=== PATIENT | male | born 1955 | race Caucasian/White ===

== ENCOUNTER 2019-06-20 20:23 | Emergency (ER) | payer OTHER, MEDICARE ==
[~2019-06-20] VITALS: Ht 177.8 cm; Wt 108.9 kg
--- NOTE | 2019-06-20 20:29 | NUR ---
Patient ambulating with steady gait. A&Ox4. c/o left sided facial drooping / paralysis x2 days. Uneven smile noted on left side. Patient able to feel sensation to face bilaterally. even BLE / BUE strength. Speech is clear and able to make needs known / follow commands. Breathing even and unlabored. No cough or SOB noted. Denies any / GI distress.
--- NOTE | 2019-06-20 20:30 | NUR ---
Dr. Oneill at bedside for MSE
[2019-06-20] MEDS ORDERED: CLONIDINE HCL 0.1 MG TABLET ONE (20:52)
[2019-06-20] MEDS ORDERED: predniSONE 20 MG TABLET ONE (20:53)
[2019-06-20] MEDS ORDERED: PANTOPRAZOLE SODIUM 40 MG TABLET.DR PO ONE ×2 (20:53→21:00)
[2019-06-20] MEDS ORDERED: VALACYCLOVIR HCL 500 MG TABLET ONE (20:53)
[2019-06-20] MEDS ORDERED: predniSONE 20 MG TABLET PO ONE (21:00)
[2019-06-20] MEDS ORDERED: CLONIDINE HCL 0.1 MG TABLET PO ONE (21:00)
[2019-06-20] MEDS ORDERED: VALACYCLOVIR HCL 500 MG TABLET PO ONE (21:00)
[2019-06-20] MEDS ORDERED: IOHEXOL 350 100 ML INFUS..BTL ONE (21:22)
[2019-06-20] MEDS ORDERED: SWABABLE VALVE TRANSFER SET EA MC ONE (21:22)
[2019-06-20 21:23] LABS: BASOPHILS # (AUTO) 0.1 K/uL (0.0-8.0); EOSINOPHILS # (AUTO) 0.3 K/uL (0.0-0.7); EOSINOPHILS % (AUTO) 5.1 % (0.0-7.0); HEMOGLOBIN 15.4 g/dL (12.5-16.3); LYMPHOCYTES # (AUTO) 1.1 K/uL (20.0-40.0); LYMPHOCYTES % (AUTO) 19.8 % (20.5-51.5); MEAN CORPUSCULAR HEMOGLOBIN 30.3 uug (23.8-33.4); MEAN CORPUSCULAR HGB CONC 34 g/dL (32.5-36.3); MEAN CORPUSCULAR VOLUME 88.4 fL (73.0-96.2); MONOCYTES # (AUTO) 0.3 K/uL (2.0-10.0); NEUTROPHILS # (AUTO) 3.7 K/uL (1.8-8.9); NEUTROPHILS % (AUTO) 68.1 % (38.5-71.5); PLATELET COUNT (AUTO) 194 K/uL (152-348); RED BLOOD CELL COUNT(AUTO) 5.09 MIL/uL (4.06-5.63); WHITE BLOOD COUNT (AUTO) 5.5 K/uL (3.6-10.2)
[2019-06-20] MEDS ORDERED: IV NORMAL SALINE 250 ML IV ONE (21:23)
[2019-06-20 21:30] LABS: CREATININE 1.6 mg/dL (0.6-1.3); POTASSIUM 3.9 mmol/L (3.5-5.1)
[2019-06-20 21:42] LABS: BILIRUBIN,DIRECT 0.1 mg/dL (0.0-0.2); BILIRUBIN,TOTAL 0.4 mg/dL (0.2-1.0)
--- NOTE | 2019-06-20 21:58 | NUR ---
Patient taken to CT scan in stable condition
[2019-06-20 22:03] LABS: *BILIRUBIN,URIN NEGATIVE (NEGATIVE); *BLOOD, URINE NEGATIVE (NEGATIVE); *CLARITY,URINE CLEAR (CLEAR); *COLOR,URINE YELLOW (YELLOW); *KETONES,URINE NEGATIVE (NEGATIVE); *UROBILINOGEN,URINE 0.2 E.U./dl (NORMAL); LEUKOCYTE ESTERASE ,URINE NEGATIVE (NEGATIVE); NITRITE, URINE NEGATIVE (NEGATIVE); UGLUCOSE TRACE (NEGATIVE)
[2019-06-20 22:09] LABS: MUCUS,URINE FEW /LPF (0-FEW)
--- NOTE | 2019-06-20 22:22 | NUR ---
Patient back from CT scan
--- NOTE | 2019-06-20 23:18 | NUR ---
IV removed. Catheter intact and site benign. Pressure and 4x4 gauze applied to site. No bleeding noted.
[2019-06-20 23:19] VITALS: BP 142/85
== END 2019-06-20 23:16 | disposition home or self-care (01) ==
LOC: ER 20:27
DX: G51.0 Bell's palsy (principal); E11.65 Type 2 diabetes mellitus with hyperglycemia; N20.0 Calculus of kidney; I10 Essential (primary) hypertension; E03.9 Hypothyroidism, unspecified; E78.00 Pure hypercholesterolemia, unspecified
CPT/HCPCS: 99285; 36415; 71250; 74176; 80048; 80076; 81001; 83690; 85025; 85730; J7512; A4663; J7050; Q9967